=== PATIENT | male | born 1965 | race Caucasian/White ===

== ENCOUNTER 2017-03-25 10:10 | Emergency (ER) | payer BC ==
[~2017-03-25] VITALS: Ht 175.3 cm; Wt 108.8 kg
[2017-03-25 10:20] VITALS: TEMP 37.3; O2SAT 94; Ht 175.3 cm; Wt 108.8 kg
[2017-03-25] MEDS ORDERED: LISI-788 PO (10:31)
[2017-03-25] MEDS ORDERED: ASPI81TA28 PO (10:31)
[2017-03-25] MEDS ORDERED: METO50TA7 PO (10:31)
[2017-03-25] MEDS ORDERED: ATOR-22 PO (10:31)
[2017-03-25] MEDS ORDERED: SERT-234 PO (10:31)
--- NOTE | 2017-03-25 11:52 | EMERGENCY ROOM VISIT NOTE ---
History First contact with patient: 11:31 Chief Complaint: CHEST PAIN Stated Complaint: CHEST PAIN Nursing Triage Summary: pt reports intermittent chest pain for approx 4 months last week got really bad now is more constant and has sob with exertion. pain is described as squeezing radiates to back and left shoulder but not right now. seen pcp 2 weeks ago had cmp done sugar level at that time was 267. pt denies being a diabetic History of Present Illness The patient is a 51 year old male who presents to the Emergency Room with complaints of chest pain. The patient states that he had an episode of chest pain in 2009 for which he underwent extensive evaluation including stress test. He has also had an echocardiogram in the past. He states that 4 months ago he developed some intermittent squeezing chest pain but seemed to get better with Aleve. The patient states that last week he had an episode of severe pain in the chest he describes as squeezing in nature. He states that it radiated to his left arm. He states that he is having shortness of breath and pain with any deep inspiration. 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 He states that the pain has been very persistent. He rates his discomfort a 5/10. He denies any fevers or chills. He denies any earache, sore throat, cough or recent upper respiratory tract infection. He denies any abdominal pain, nausea or vomiting. He does admit to intermittent swelling of the lower extremities left greater than right. He has no history of diabetes but states his hemoglobin A1c was 10 and his sugar was 267 1 week ago. He states that his hemoglobin A1c was 5 last year. Review of Systems A 10 system review of systems was completed with positives and pertinent negatives listed in the HPI. Past Medical/Surgical History Medical Problems: (1) Hyperlipidemia (2) Hypertension Social History Smoking Status: Never Smoker Housing Status: lives with family Occupation Status: employed Current/Historical Medications Scheduled Aspirin (Aspirin Ec), 81 MG PO DAILY Atorvastatin (Lipitor), 20 MG PO QAM Colchicine (Colchicine), 0.6 MG PO BID Lisinopril/Hctz (Zestoretic 20MG/25MG), 1 TAB PO QAM Metoprolol Succ (Toprol Xl) (Toprol-Xl), 50 MG PO QAM Sertraline (Zoloft), 100 MG PO DAILY Physical Exam Vital Signs Date Time Temp Pulse Resp B/P (MAP) Pulse Ox O2 Delivery O2 Flow Rate FiO2 03/25/17 15:56 72 18 132/83 95 03/25/17 14:14 63 18 111/85 93 Room Air 03/25/17 13:07 66 03/25/17 12:08 74 20 110/77 96 Room Air 03/25/17 10:20 94 Room Air 03/25/17 10:20 37.3 91 18 136/85 94 Room Air 03/25/17 10:19 81 Physical Exam VITALS: Vitals are noted on the nurse's note and reviewed by myself. Vital signs stable. The patient is afebrile. GENERAL: This is a 51-year-old male, in no acute distress, nondiaphoretic, well- developed well-nourished. SKIN: The skin was without rashes, erythema, or bruising. There is edema noted to the left lower extremity, greater than right. There is no tenting of the skin. Capillary reflex less than 2 seconds. HEAD: Normocephalic atraumatic. EARS: The external ears are normal in appearance. EYES: Pupils equal round and reactive to light and accommodation. Conjunctivae without injection, sclerae without icterus. Extraocular movements intact. NOSE: Patent, turbinates without inflammation or discharge. MOUTH: Mucous membranes moist. Tonsils are not enlarged. Pharynx without erythema or exudate. Uvula midline. Airway patent. Tongue does not deviate. NECK: Supple without nuchal rigidity. No JVD. HEART: Regular rate and rhythm without murmurs gallops or rubs. LUNGS: Clear to auscultation bilaterally without wheezes, rales or rhonchi. No retractions or accessory muscle use. ABDOMEN: Positive bowel sounds x 4. Soft, nontender, without masses or organomegaly. Leslie sign negative. MUSCULOSKELETAL: No muscle atrophy, erythema,noted. Full range of motion without joint tenderness in all extremities. No tenderness to palpation. Normal gait. Strength 5/5 throughout. NEURO: Patient was alert and oriented to person place and time. No focal neurological deficits. Medical Decision & Procedures ER Provider Diagnostic Interpretation: SINGLE VIEW CHEST CLINICAL HISTORY: Atypical chest pain. FINDINGS: An AP, portable, upright chest radiograph is obtained. No prior studies are available for comparison at the time of dictation. The examination is degraded by portable technique and patient rotation. The heart is enlarged. The pulmonary vasculature is noncongested. The lungs and pleural spaces are clear. No pneumothorax is seen. The bony thorax is grossly intact. IMPRESSION: Cardiomegaly with no acute cardiopulmonary abnormality. [~ rep ct add3]] (CHEST FOR PE) ANGIO WITH CT DOSE: 716.19 mGy.cm HISTORY: Chest pain dyspnea TECHNIQUE: Multiaxial CT images of the chest were performed following the intravenous administration of contrast to evaluate the pulmonary arteries. Maximal intensity projection images were also obtained. A dose lowering technique was utilized adhering to the principles of ALARA. COMPARISON STUDY: None. FINDINGS: Minimal atherosclerotic change thoracic aorta. The pulmonary vasculature enhances appropriately. No significant filling defects. Evaluation along parenchyma shows mild dependent basilar atelectatic change. There is a small left effusion. There is a moderate pericardial effusion with a maximum thickness of 1 cm. IMPRESSION: 1. No evidence for pulmonary most. 2. Small left pleural effusion with bibasilar atelectasis. 3. Pericardial effusion with a maximum thickness of 1 cm Laboratory Results 03/25/17 10:25 Red Blood Count 4.13, Mean Corpuscular Volume 94.9, Mean Corpuscular Hemoglobin 33.4, Mean Corpuscular Hemoglobin Concent 35.2, Mean Platelet Volume 9.4, Neutrophils (%) (Auto) 70.9, Lymphocytes (%) (Auto) 15.6, Monocytes (%) (Auto) 8.0, Eosinophils (%) (Auto) 4.5, Basophils (%) (Auto) 0.4, Neutrophils # (Auto) 3.46, Lymphocytes # (Auto) 0.76, Monocytes # (Auto) 0.39, Eosinophils # (Auto) 0.22, Basophils # (Auto) 0.02 03/25/17 10:25 Test 03/25/17 00:00 03/25/17 10:25 03/25/17 12:07 Urine Color YELLOW Urine Appearance CLEAR (CLEAR) Urine pH 7.5 (4.5-7.5) Urine Specific [place] > 1.045 (1.000-1.030) Urine Protein NEG (NEG) Urine Glucose (UA) TRACE (NEG) Urine Ketones NEG (NEG) Urine Occult Blood NEG (NEG) Urine Nitrite NEG (NEG) Urine Bilirubin NEG (NEG) Urine Urobilinogen NEG (NEG) Urine Leukocyte Esterase NEG (NEG) White Blood Count 4.88 K/uL (4.8-10.8) Red Blood Count 4.13 M/uL (4.7-6.1) Hemoglobin 13.8 g/dL (14.0-18.0) Hematocrit 39.2 % (42-52) Mean Corpuscular Volume 94.9 fL (80-100) Mean Corpuscular Hemoglobin 33.4 pg (25-34) Mean Corpuscular Hemoglobin Concent 35.2 g/dl (32-36) Platelet Count 174 K/uL (130-400) Mean Platelet Volume 9.4 fL (7.4-10.4) Neutrophils (%) (Auto) 70.9 % Lymphocytes (%) (Auto) 15.6 % Monocytes (%) (Auto) 8.0 % Eosinophils (%) (Auto) 4.5 % Basophils (%) (Auto) 0.4 % Neutrophils # (Auto) 3.46 K/uL (1.4-6.5) Lymphocytes # (Auto) 0.76 K/uL (1.2-3.4) Monocytes # (Auto) 0.39 K/uL (0.11-0.59) Eosinophils # (Auto) 0.22 K/uL (0-0.5) Basophils # (Auto) 0.02 K/uL (0-0.2) RDW Standard Deviation 41.6 fL (36.4-46.3) RDW Coefficient of Variation 12.1 % (11.5-14.5) Immature Granulocyte % (Auto) 0.6 % Immature Granulocyte # (Auto) 0.03 K/uL (0.00-0.02) Prothrombin Time 10.5 SECONDS (9.0-12.0) Prothromb Time International Ratio 1.0 (0.9-1.1) Activated Partial Thromboplast Time 28.2 SECONDS (21.0-31.0) Partial Thromboplastin Ratio 1.1 Est Creatinine Clear Calc Drug Dose 133.0 ml/min Estimated GFR () 119.7 Estimated GFR (Non- 103.2 BUN/Creatinine Ratio 11.1 (10-20) Calcium Level 9.0 mg/dl (8.5-10.1) Magnesium Level 1.8 mg/dl (1.8-2.4) Total Bilirubin 0.4 mg/dl (0.2-1) Aspartate Amino Transf (AST/SGOT) 23 U/L (15-37) Alanine Aminotransferase (ALT/SGPT) 39 U/L (12-78) Alkaline Phosphatase 90 U/L (45-117) Total Creatine Kinase 40 U/L (39-308) Creatine Kinase MB < 0.5 ng/ml (0.5-3.6) Creatine Kinase MB Ratio (0-3.0) Troponin I < 0.015 ng/ml (0-0.045) Total Protein 7.0 gm/dl (6.4-8.2) Albumin 3.2 gm/dl (3.4-5.0) Globulin 3.8 gm/dl (2.5-4.0) Albumin/Globulin Ratio 0.8 (0.9-2) Lipase 98 U/L (73-393) Thyroid Stimulating Hormone (TSH) 1.310 uIu/ml (0.300-4.500) Bedside Hemoglobin 12.2 g/dl (14.0-18.0) Bedside Hematocrit 36 % (42-52) Bedside Sodium 138 mEq/L (135-144) Bedside Potassium 3.6 mEq/L (3.3-5.0) Bedside Chloride 96 mEq/L (101-112) Bedside Total CO2 29 mEq/l (24-31) Anion Gap 18.0 mmol/L (16-25) Bedside Blood Urea Nitrogen 7 mg/dl (7-18) Bedside Creatinine 0.6 mg/dl (0.6-1.3) Bedside Glucose (other) 207 mg/dl (70-99) Bedside Ionized Calcium (Gavin) 1.13 mmol/l (1.12-1.32) Medications Administered Medications (Trade) Dose Ordered Sig/Seferino Route Start Time Stop Time Status Last Admin Dose Admin Perflutren Lipid Microsphere (Definity) 2 ml ONE ONCE IV 03/25/17 14:42 03/25/17 14:43 DC 03/25/17 14:42 2 ML Procedure The patient was monitored on a clinical research monitor. They maintained a normal sinus rhythm without ectopy. ECG Indication: chest pain Rate (beats per minute): 80 Rhythm: normal sinus Findings: no acute ischemic change Comparison ECG Date: no prior available ED Course The patient was seen and examined. Previous visits were reviewed. The patient does not have a fever or leukocytosis. He is not anemic. He does not have any significant electrolyte abnormality. Glucose is elevated at 214. Cardiac enzymes are not elevated. Lipase was not elevated. TSH was within normal limits. INR was 1.0. Urinalysis was negative. Chest x-ray reveals cardiomegaly with no acute finding CTA of the chest reveals a pericardial effusion and small left pleural effusion The patient presents to the emergency department with pleuritic chest pain. The symptoms have been intermittent over the last several months. Aleve seems to make the symptoms go away for a short time. The patient's pain is better with laying flat and worse with deep inspiration. He does appear to have a pericardial effusion. The exact etiology is not clear but could be related to a pericarditis. The patient also has a new onset diabetes. I discussed the case with Dr. Ramey regarding the pericardial effusion. He suggests echocardiogram, ibuprofen 3 times a day and colchicine twice a day. The patient can follow-up in the office with cardiology. I also discussed the case with Dr. Ruiz. He recommends holding off on metformin given the IV contrast that was given today. The patient does have an appointment with the family doctor on Tuesday. He was encouraged to keep this appointment. The patient was advised of the above findings. He was encouraged to return with any worsening symptoms. Otherwise, he should follow-up with his family doctor and cardiology. The case was discussed with Dr. Grant who agrees with the assessment and treatment plan. Medical Decision DIFFERENTIAL DIAGNOSIS: Aortic dissection, myocarditis, pericarditis, cervical disc disease, costochondritis, herpes zoster, rib fracture, pleuritis, pneumonia , pulmonary embolus, tension pneumothorax, anxiety disorder, somatoform disorder , choledocholithiasis, status, esophagitis, esophageal spasm, esophageal reflux , esophageal rupture, pancreatitis, peptic ulcer disease, cardiac ischemia, ST elevation CA, acute coronary syndrome, arrhythmia, coronary artery vasospasm. vavular heart disease, coronary artery disease, among others. Impression Primary Impression: Pericarditis Additional Impressions: Pericardial effusion Hyperglycemia Departure Information Dispostion Home / Self-Care Condition GOOD Prescriptions Colchicine (Colchicine) 0.6 Mg Tab 0.6 MG PO BID for 30 Days, #60 TAB Prov: Edita Perez PA-C 03/25/17 Referrals Shade Ruiz MD (PCP) Patient Instructions ED Chest Pain Pericarditis, [facility], Treatment for Pericardial Effusion Additional Instructions Colchicine every 12 hours. You will likely need more than 2 weeks. Ibuprofen 600 mg every 8 hours for 2 weeks. You may consider GI protection with either a proton pump inhibitor such as Prilosec or an H2 jarad such as Zantac while taking the colchicine and ibuprofen. Follow up with your family doctor as scheduled Follow-up with cardiology for further evaluation and management Return with any worsening symptoms, fevers, worsening chest pain, worsening trouble breathing or generalized worsening symptoms Problem Qualifiers
[2017-03-25] MEDS ORDERED: OPTIRAY 320 IV PRN (12:00)
[2017-03-25 12:01] LABS: BASO % 0.4 %; BASO ABS # 0.02 K/uL (0-0.2); COMPLETE YES; EOS % 4.5 %; HEMATOCRIT 39.2 % (42-52); IG% 0.6 %; LYMPH % 15.6 %; LYMPH ABS # 0.76 K/uL (1.2-3.4); MEAN CELL VOLUME 94.9 fL (80-100); MEAN CORPUSCULAR HEMOGLOBIN 33.4 pg (25-34); MEAN CORPUSCULAR HGB CONC 35.2 g/dl (32-36); MEAN PLATELET VOLUME 9.4 fL (7.4-10.4); NEUT % 70.9 %; PLATELET COUNT 174 K/uL (130-400); RED BLOOD COUNT 4.13 M/uL (4.7-6.1); WHITE BLOOD COUNT 4.88 K/uL (4.8-10.8)
[2017-03-25 12:03] LABS: PARTIAL THROMBOPLASTIN RATIO 1.1; PROTHROMBIN TIME (PATIENT) 10.5 SECONDS (9.0-12.0)
[2017-03-25 12:09] LABS: ALT/SGPT 39 U/L (12-78); BLOOD UREA NITROGEN 9 mg/dl (7-18); BUN/CREATININE RATIO 11.1 (10-20); CARBON DIOXIDE 30 mmol/L (21-32); CHLORIDE 100 mmol/L (98-107); CREATININE 0.79 mg/dl (0.60-1.40); GLUCOSE 214 mg/dl (70-99); MAGNESIUM 1.8 mg/dl (1.8-2.4); POTASSIUM 3.6 mmol/L (3.5-5.1); SODIUM 138 mmol/L (136-145)
--- NOTE | 2017-03-25 12:12 | DIAGNOSTIC IMAGING REPORT ---
SINGLE VIEW CHEST CLINICAL HISTORY: Atypical chest pain. FINDINGS: An AP, portable, upright chest radiograph is obtained. No prior studies are available for comparison at the time of dictation. The examination is degraded by portable technique and patient rotation. The heart is enlarged. The pulmonary vasculature is noncongested. The lungs and pleural spaces are clear. No pneumothorax is seen. The bony thorax is grossly intact. IMPRESSION: Cardiomegaly with no acute cardiopulmonary abnormality. Electronically signed by: Ephraim Hernández M.D. 03/25/2017 12:11 PM Dictated Date/Time: 03/25/2017 12:10 PM
[2017-03-25 12:20] LABS: ALB/GLOB RATIO 0.8 (0.9-2); ALKALINE PHOSPHATASE 90 U/L (45-117); AST/SGOT 23 U/L (15-37)
[2017-03-25 12:24] LABS: ISTAT CREATININE 0.6 mg/dl (0.6-1.3); ISTAT HEMOGLOBIN 12.2 g/dl (14.0-18.0); ISTAT IONIZED CALCIUM 1.13 mmol/l (1.12-1.32)
--- NOTE | 2017-03-25 12:47 | DIAGNOSTIC IMAGING REPORT ---
(CHEST FOR PE) ANGIO WITH CT DOSE: 716.19 mGy.cm HISTORY: Chest pain dyspnea TECHNIQUE: Multiaxial CT images of the chest were performed following the intravenous administration of contrast to evaluate the pulmonary arteries. Maximal intensity projection images were also obtained. A dose lowering technique was utilized adhering to the principles of ALARA. COMPARISON STUDY: None. FINDINGS: Minimal atherosclerotic change thoracic aorta. The pulmonary vasculature enhances appropriately. No significant filling defects. Evaluation along parenchyma shows mild dependent basilar atelectatic change. There is a small left effusion. There is a moderate pericardial effusion with a maximum thickness of 1 cm. IMPRESSION: 1. No evidence for pulmonary most. 2. Small left pleural effusion with bibasilar atelectasis. 3. Pericardial effusion with a maximum thickness of 1 cm The above report was generated using voice recognition software. It may contain grammatical, syntax or spelling errors. Electronically signed by: Carson Ramachandran M.D. 03/25/2017 12:46 PM Dictated Date/Time: 03/25/2017 12:40 PM
[2017-03-25 13:08] LABS: MANUAL MICROSCOPIC REQUIRED? NO; REVIEW REQ? NO; URINE APPEARANCE CLEAR (CLEAR); URINE BILIRUBIN NEG (NEG); URINE COLOR YELLOW; URINE NITRITE NEG (NEG); URINE PH 7.5 (4.5-7.5); URINE SPECIFIC GRAVITY > 1.045 (1.000-1.030); UROBILINOGEN NEG (NEG); ZZUR CULT IF INDIC CLEAN CATCH NO
[2017-03-25] MEDS ORDERED: PERFLUTREN LIPID MICROSPHERE (DEFINITY) IV ONE (14:42)
--- NOTE | 2017-03-25 14:45 | ECHOCARDIOGRAM REPORT ---
*NOTICE TO RECEIVING REPUBLICAN AGENCY This information is strictly Confidential and protected under [place] law. [place] law prohibits you from making any further disclosure of this information unless further disclosure is expressly permitted by the written consent of the person to whom it pertains or is authorized by law. A general authorization for the release of medical or other information is not sufficient for this purpose. Hospital accepts no responsibility if the information is made available to any other person, INCLUDING THE PATIENT. Interpretation Summary * Name: SARWAT CONSTANTINO Study Date: 03/25/2017 01:58 PM BP: 110/77 mmHg * Patient Location: C.EDB HR: 67 * : 1965 (M/d/yyyy) Gender: Male Height: 69 in * Age: 51 yrs Ethnicity: CA Weight: 239 lb * Ordering Physician: Edita Perez * Referring Physician: Shade Ruiz * Performed By: Sakshi Sánchez RCS * * Reason For Study: Pericarditis * BSA: 2.2 m2 * -- Conclusions -- * Normal LV chamber size and wall thickness. * Normal LV systolic function, EF 60-65%. * No segmental left ventricular wall motion abnormalities are noted. * Grade I diastolic dysfunction. * No significant valvular pathology. * Small, circumferential pericardial effusion without hemodynamic compromise. Procedure Details * Left Ventricle The left ventricle is normal in size. There is normal left ventricular wall thickness. Ejection Fraction = 60-65%. Left ventricular systolic function is normal. No segmental left ventricular wall motion abnormalities are noted. The left ventricular wall motion is normal. * Right Ventricle The right ventricular cavity size is normal (basal dimension <4.2 cm in right ventricular apical 4-chamber view). The right ventricular systolic function is normal as assessed by tricuspid annular plane systolic excursion (TAPSE) (normal >1.5 cm). * Atria The left atrial size is normal. Right atrial size is normal. No ASD detected; PFO is not assessed. * Mitral Valve The mitral valve is normal in structure and function. * Tricuspid Valve The tricuspid valve is normal in structure and function. * Aortic Valve The aortic valve is not well visualized. No hemodynamically significant valvular aortic stenosis. There is no significant aortic regurgitation. * Pulmonic Valve The pulmonary valve is not well seen, but the Doppler examination is normal without significant regurgitation or stenosis. * Great Vessels The aortic root is normal size. * Pericardium/Pleural Small pericardial effusion. A circumferential pericardial effusion is noted. * Left Ventricular Diastolic Function Grade I diastolic dysfunction, (abnormal relaxation pattern). * * MMode 2D Measurements and Calculations * IVSd 0.85 cm * * LVIDd 5.2 cm * LVIDs 3.7 cm * LVPWd 1.0 cm * * IVS/LVPW 0.83 * FS 29.4 % * EDV(Teich) 128.4 ml * ESV(Teich) 56.6 ml * EF(Teich) 55.9 % * * EDV(cubed) 139.1 ml * ESV(cubed) 49.0 ml * EF(cubed) 64.8 % * * LV mass(C)d 175.8 grams * LV mass(C)dI 78.9 grams/m\S\2 * * SV(Teich) 71.8 ml * SI(Teich) 32.2 ml/m\S\2 * SV(cubed) 90.1 ml * SI(cubed) 40.4 ml/m\S\2 * * LVAd ap4 35.6 cm\S\2 * LVLd ap4 9.7 cm * EDV(MOD-sp4) 107.8 ml * EDV(sp4-el) 111.6 ml * LVAs ap4 19.3 cm\S\2 * LVLs ap4 7.9 cm * ESV(MOD-sp4) 40.5 ml * ESV(sp4-el) 40.0 ml * EF(MOD-sp4) 62.4 % * EF(sp4-el) 64.2 % * * LVAd ap2 30.6 cm\S\2 * LVLd ap2 8.2 cm * EDV(MOD-sp2) 95.7 ml * EDV(sp2-el) 97.2 ml * LVAs ap2 15.1 cm\S\2 * LVLs ap2 7.1 cm * ESV(MOD-sp2) 28.3 ml * ESV(sp2-el) 27.3 ml * EF(MOD-sp2) 70.5 % * EF(sp2-el) 71.9 % * * LVLd %diff -18.34 % * EDV(MOD-bp) 107.8 ml * LVLs %diff -11.76 % * ESV(MOD-bp) 35.6 ml * EF(MOD-bp) 67.0 % * * SV(MOD-sp4) 67.3 ml * SI(MOD-sp4) 30.2 ml/m\S\2 * * SV(MOD-sp2) 67.5 ml * SI(MOD-sp2) 30.3 ml/m\S\2 * * SV(MOD-bp) 72.2 ml * SI(MOD-bp) 32.4 ml/m\S\2 * * SV(sp4-el) 71.6 ml * SI(sp4-el) 32.1 ml/m\S\2 * * SV(sp2-el) 69.9 ml * SI(sp2-el) 31.4 ml/m\S\2 * * * * * Doppler Measurements and Calculations * MV E max west 94.8 cm/sec * MV A max west 92.8 cm/sec * * MV E/A 1.0 * * MV dec time 0.15 sec * * Ao V2 max 118.1 cm/sec * Ao max PG 5.6 mmHg * Ao max PG (full) 0.47 mmHg * * LV V1 max PG 5.1 mmHg * * LV V1 max 113.0 cm/sec * * * *
[2017-03-25] MEDS ORDERED: COLC0.6T54 PO ×2 (15:09→15:32)
[2017-03-25 15:56] VITALS: BP 132/83; PULSE 72; O2SAT 95
[2017-04-09] MEDS ORDERED: METO50TA7 PO (16:05)
[2017-04-09] MEDS ORDERED: APIX1TAB3 PO (16:05)
== END 2017-03-25 15:57 | disposition home or self-care (01) ==
LOC: C.EDB 10:12
DX: I31.9 Disease of pericardium, unspecified (principal); I31.3 Pericardial effusion (noninflammatory); R73.9 Hyperglycemia, unspecified; I10 Essential (primary) hypertension; E78.5 Hyperlipidemia, unspecified; Z79.82 Long term (current) use of aspirin; Z79.899 Other long term (current) drug therapy

== ENCOUNTER 2017-04-09 03:15 | Observation (INO) | payer BC ==
[2017-04-09] VITALS (8 sets, daily range): BP systolic 114–123; BP diastolic 77–82; PULSE 75–80; TEMP 36.6–36.8; O2SAT 95–98; Ht 175.3 cm; Wt 106.3 kg
[~2017-04-09] VITALS: Ht 175.3 cm; Wt 106.3 kg
[~2017-04-09 03:15] MED LIST: ASPI81TA28 PO; ATOR-22 PO; COLC0.6T54 PO; LISI-788 PO; METO50TA7 PO; SERT-234 PO
[2017-04-09] MEDS ORDERED: DILTIAZEM HCL 5 MG/ML 5 ML VIAL ONE (03:32)
[2017-04-09] MEDS ORDERED: DILTIAZEM HCL 5 MG/ML 5 ML VIAL IV STA (03:33)
[2017-04-09 03:44] LABS: BASO % 0.1 %; BASO ABS # 0.01 K/uL (0-0.2); COMPLETE YES; EOS % 3.2 %; HEMATOCRIT 37.4 % (42-52); IG% 0.3 %; LYMPH % 17.1 %; LYMPH ABS # 1.17 K/uL (1.2-3.4); MEAN CELL VOLUME 91.7 fL (80-100); MEAN CORPUSCULAR HEMOGLOBIN 32.6 pg (25-34); MEAN CORPUSCULAR HGB CONC 35.6 g/dl (32-36); MONO % 6.4 %; NEUT % 72.9 %; PLATELET COUNT 241 K/uL (130-400); RED BLOOD COUNT 4.08 M/uL (4.7-6.1); WHITE BLOOD COUNT 6.86 K/uL (4.8-10.8)
[2017-04-09] MEDS ORDERED: SODIUM CHLORIDE 0.9% 1000ML 1,000 ML IV ONE (03:45)
[2017-04-09 03:52] LABS: URINE APPEARANCE CLEAR (CLEAR); URINE BILIRUBIN NEG (NEG); URINE COLOR YELLOW; URINE NITRITE NEG (NEG); URINE PH 5.5 (4.5-7.5); URINE SPECIFIC GRAVITY 1.014 (1.000-1.030); UROBILINOGEN NEG (NEG); ZZUR CULT IF INDIC CLEAN CATCH NO
[2017-04-09 03:56] LABS: PARTIAL THROMBOPLASTIN RATIO 1.1; PROTHROMBIN TIME (PATIENT) 10.7 SECONDS (9.0-12.0)
[2017-04-09 04:03] LABS: MANUAL MICROSCOPIC REQUIRED? NO; REVIEW REQ? NO
[2017-04-09 04:04] LABS: BUN/CREATININE RATIO 24.4 (10-20); CALCIUM 9.2 mg/dl (8.5-10.1); CREATININE 0.96 mg/dl (0.60-1.40); MAGNESIUM 1.7 mg/dl (1.8-2.4); POTASSIUM 3.4 mmol/L (3.5-5.1)
[2017-04-09 04:15] LABS: ALB/GLOB RATIO 0.6 (0.9-2); THYROID STIMULATING HORMONE 2.98 uIu/ml (0.300-4.500)
[2017-04-09] MEDS ORDERED: GLC/500 PO (04:30)
[2017-04-09 04:38] LABS: LYME DISEASE AB IGG NEG (NEG); LYME DISEASE AB IGM NEG (NEG)
[2017-04-09] MEDS ORDERED: POTASSIUM CHLORIDE 10 MEQ TABCR PO STA (05:01)
[2017-04-09] MEDS ORDERED: MAGNESIUM SULFATE 1GM / D5W 1 GM in PREMIXED IN D5W 100 ML IV ONE (05:15)
[2017-04-09] MEDS ORDERED: MAGNESIUM SULFATE 1GM / D5W 1 GM BAG ONE (05:31)
[2017-04-09] MEDS ORDERED: POTASSIUM CHLORIDE 10 MEQ TABCR ONE (05:31)
[2017-04-09] MEDS ORDERED: METOPROLOL SUCC 50MG EXT REL TAB PO ONE (05:55)
[2017-04-09] MEDS ORDERED: GLUCOSE 40% GEL 15 GM TUBE PO PRN (06:00)
[2017-04-09] MEDS ORDERED: GLUCAGON FOR INJ 1 MG VIAL SQ PRN (06:00)
[2017-04-09] MEDS ORDERED: LORAZEPAM 2 MG/ML 1 ML VIAL IV PRN (06:00)
[2017-04-09] MEDS ORDERED: GLUCOSE 10 TABS/TUBE PO PRN (06:00)
[2017-04-09] MEDS ORDERED: MoRPHine SULFATE 4 MG/ML 1 ML CARP\\VIAL IV PRN (06:00)
[2017-04-09] MEDS ORDERED: ACETAMINOPHEN 325 MG TAB PO PRN (06:00)
[2017-04-09] MEDS ORDERED: ONDANSETRON INJ 2 MG/ML 2 ML VIAL IV PRN (06:00)
[2017-04-09] MEDS ORDERED: TRAMADOL HCL 50 MG TAB PO PRN (06:00)
[2017-04-09] MEDS ORDERED: NITROGLYCERIN 0.4 MG SL PER TAB CHARGE SL PRN (06:00)
[2017-04-09] MEDS ORDERED: DEXTROSE 50% 50 ML SYR IV PRN (06:00)
--- NOTE | 2017-04-09 06:19 | EMERGENCY ROOM VISIT NOTE ---
History First contact with patient: 03:22 Chief Complaint: CHEST PAIN Stated Complaint: CP Nursing Triage Summary: Pt reports he woke up at 2 am with palpitations. Pt then developed chest pain. Pt was here 2 weeks ago and dx with pericarditis. History of Present Illness The patient is a 51 year old male who presents to the Emergency Room with complaints of palpitations that began approximately one hour prior to arrival. The patient was in bed at the time of his symptoms, and then he slowly began to develop chest pain. The patient was recently seen here in this department about 2 weeks ago where he was found to have a pericardial effusion. 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 The patient has not had reports of recent fever or chills. No respiratory concerns. He has not had symptoms like this in the past. He did recently begin medication for glucose control, however he has been tolerating this well. The patient rates his overall discomfort a 7/10. Review of Systems More than 10 systems were reviewed and otherwise negative with the exception of history of present illness. Past Medical/Surgical History Medical Problems: (1) Hyperlipidemia (2) Hypertension (3) Paroxysmal atrial fibrillation Family History No pertinent family history Social History Smoking Status: Former Smoker Housing Status: lives with family Occupation Status: employed Current/Historical Medications Scheduled Aspirin (Aspirin Ec), 81 MG PO DAILY Atorvastatin (Lipitor), 20 MG PO QAM Colchicine (Colchicine), 0.6 MG PO BID Lisinopril/Hctz (Zestoretic 20MG/25MG), 1 TAB PO QAM Metformin Hcl (Glucophage), 500 MG PO BID Metoprolol Succ (Toprol Xl) (Toprol-Xl), 50 MG PO QAM Sertraline (Zoloft), 100 MG PO DAILY Physical Exam Vital Signs Date Time Temp Pulse Resp B/P (MAP) Pulse Ox O2 Delivery O2 Flow Rate FiO2 04/09/17 05:30 85 16 121/80 95 Room Air 04/09/17 04:12 87 16 109/62 94 04/09/17 03:50 93 20 109/69 93 04/09/17 03:49 95 Room Air 04/09/17 03:44 90 16 114/75 95 04/09/17 03:43 94 Room Air 04/09/17 03:30 94 04/09/17 03:21 36.5 157 24 116/90 94 Room Air Pain Rating (0-10): 0 Physical Exam VITALS: Vitals are noted on the nurse's note and reviewed by myself. Vital signs with tachycardia GENERAL: Well-developed, well-nourished, white male, who is in no acute distress and resting comfortably. Patient is cooperative with the examination. HEART: Irregularly irregular LUNGS: Clear to auscultation bilaterally without wheezes, rales or rhonchi. No retractions or accessory muscle use. ABDOMEN: Positive normal bowel sounds x 4. Soft, nontender, without masses or organomegaly. No guarding or rebound tenderness. MUSCULOSKELETAL: No muscle atrophy, erythema, or edema noted. Full range of motion without joint tenderness in all extremities. NEURO: Patient was alert and oriented to person place and time. CN II through XII grossly intact. Medical Decision & Procedures Laboratory Results 04/09/17 03:25 Red Blood Count 4.08, Mean Corpuscular Volume 91.7, Mean Corpuscular Hemoglobin 32.6, Mean Corpuscular Hemoglobin Concent 35.6, Mean Platelet Volume 9.0, Neutrophils (%) (Auto) 72.9, Lymphocytes (%) (Auto) 17.1, Monocytes (%) (Auto) 6.4, Eosinophils (%) (Auto) 3.2, Basophils (%) (Auto) 0.1, Neutrophils # (Auto) 5.00, Lymphocytes # (Auto) 1.17, Monocytes # (Auto) 0.44, Eosinophils # (Auto) 0.22, Basophils # (Auto) 0.01 04/09/17 03:25 Test 04/09/17 03:25 04/09/17 03:45 04/09/17 03:48 White Blood Count 6.86 K/uL (4.8-10.8) Red Blood Count 4.08 M/uL (4.7-6.1) Hemoglobin 13.3 g/dL (14.0-18.0) Hematocrit 37.4 % (42-52) Mean Corpuscular Volume 91.7 fL (80-100) Mean Corpuscular Hemoglobin 32.6 pg (25-34) Mean Corpuscular Hemoglobin Concent 35.6 g/dl (32-36) Platelet Count 241 K/uL (130-400) Mean Platelet Volume 9.0 fL (7.4-10.4) Neutrophils (%) (Auto) 72.9 % Lymphocytes (%) (Auto) 17.1 % Monocytes (%) (Auto) 6.4 % Eosinophils (%) (Auto) 3.2 % Basophils (%) (Auto) 0.1 % Neutrophils # (Auto) 5.00 K/uL (1.4-6.5) Lymphocytes # (Auto) 1.17 K/uL (1.2-3.4) Monocytes # (Auto) 0.44 K/uL (0.11-0.59) Eosinophils # (Auto) 0.22 K/uL (0-0.5) Basophils # (Auto) 0.01 K/uL (0-0.2) RDW Standard Deviation 40.6 fL (36.4-46.3) RDW Coefficient of Variation 12.0 % (11.5-14.5) Immature Granulocyte % (Auto) 0.3 % Immature Granulocyte # (Auto) 0.02 K/uL (0.00-0.02) Prothrombin Time 10.7 SECONDS (9.0-12.0) Prothromb Time International Ratio 1.0 (0.9-1.1) Activated Partial Thromboplast Time 27.8 SECONDS (21.0-31.0) Partial Thromboplastin Ratio 1.1 Anion Gap 10.0 mmol/L (3-11) Est Creatinine Clear Calc Drug Dose 107.9 ml/min Estimated GFR () 104.9 Estimated GFR (Non- 90.5 BUN/Creatinine Ratio 24.4 (10-20) Calcium Level 9.2 mg/dl (8.5-10.1) Magnesium Level 1.7 mg/dl (1.8-2.4) Total Bilirubin 0.3 mg/dl (0.2-1) Aspartate Amino Transf (AST/SGOT) 24 U/L (15-37) Alanine Aminotransferase (ALT/SGPT) 29 U/L (12-78) Alkaline Phosphatase 98 U/L (45-117) Total Protein 7.5 gm/dl (6.4-8.2) Albumin 2.8 gm/dl (3.4-5.0) Globulin 4.7 gm/dl (2.5-4.0) Albumin/Globulin Ratio 0.6 (0.9-2) Thyroid Stimulating Hormone (TSH) 2.980 uIu/ml (0.300-4.500) Lyme Disease IgG Antibody NEG (NEG) Lyme Disease IgM Antibody NEG (NEG) Urine Color YELLOW Urine Appearance CLEAR (CLEAR) Urine pH 5.5 (4.5-7.5) Urine Specific [place] 1.014 (1.000-1.030) Urine Protein NEG (NEG) Urine Glucose (UA) NEG (NEG) Urine Ketones TRACE (NEG) Urine Occult Blood NEG (NEG) Urine Nitrite NEG (NEG) Urine Bilirubin NEG (NEG) Urine Urobilinogen NEG (NEG) Urine Leukocyte Esterase NEG (NEG) Bedside Troponin I < 0.030 ng/ml (0-0.045) Medications Administered Medications (Trade) Dose Ordered Sig/Seferino Route Start Time Stop Time Status Last Admin Dose Admin Diltiazem HCl (Cardizem Inj) 10 mg NOW STAT IV 04/09/17 03:33 04/09/17 03:36 DC 04/09/17 03:40 10 MG Sodium Chloride 1,000 ml @ 999 mls/hr Q1H1M ONCE IV 04/09/17 03:45 04/09/17 04:45 DC 04/09/17 03:42 999 MLS/HR Magnesium Sulfate (Magnesium Sulfate) 1 gm STK-MED ONCE .ROUTE 04/09/17 05:31 04/09/17 05:32 DC 04/09/17 05:34 1 GM Potassium Chloride (Klor-Con M10) 60 meq STK-MED ONCE .ROUTE 04/09/17 05:31 04/09/17 05:32 DC 04/09/17 05:34 60 MEQ ED Course Physical exam and history were performed. Nursing notes, EMR, and Medication List were personally reviewed. Patient appears to have reports of palpitations for roughly the past one hour. On examination the patient has an irregularly irregular heart, and EKG does confirm atrial fibrillation with rapid ventricular response of roughly 160 bpm. IV access was established and labs were obtained. The patient was hydrated with normal saline and given a dose of 10 mg IV Cardizem. Repeat EKG a few minutes later did show conversion to normal sinus rhythm at roughly 80 beats for minute without significant ST elevation. The patient's blood work is as above. He does not have a significantly elevated white blood cell count or gross anemia, bandemia, or significant electrolyte imbalance. Transaminases are nondiagnostic. Troponin 1 is negative. TSH is euthyroid state. Lyme is negative. Chest x-ray does not show significant acute findings. I discussed the case with my attending physician, Dr. Ryan, and then with the on-call [facility] hospitalist. The patient appears to have new onset atrial fibrillation with RVR. The patient has not had this in the past, and considering that 2 weeks ago he did have a pericardial effusion I feel that he needs further inpatient evaluation. Please see the hospitalist dictation for further patient course, plan, and disposition. The chart was completed utilizing [employer] Speech Voice Recognition Software. Grammatical errors, random word insertions, pronoun errors, and incomplete sentences are an occasional consequence of this system due to software limitations, ambient noise, and hardware issues. Any formal questions or concerns about the content, text, or information contained within the body of this dictation should be directly addressed to the provider for clarification. . Medical Decision Differential diagnosis: Etiologies such as premature contractions, electrolyte abnormality, cardiac dysrhythmia, thyroid dysfunction, pulmonary embolism, infection, gastrointestinal, as well as others were entertained. Medication Reconcilliation Current Medication List: was personally reviewed by me Blood Pressure Screening Blood pressure disposition: Elevated BP felt to be situational Impression Primary Impression: Atrial fibrillation with RVR Additional Impression: Paroxysmal atrial fibrillation Departure Information Referrals Shade Ruiz MD (PCP) Patient Instructions [facility] Problem Qualifiers
[2017-04-09] MEDS ORDERED: LORAZEPAM INJ 0.5 MG in SYRINGE 0.75 ML IV PRN (06:30)
[2017-04-09] MEDS: INSULIN ASPART 100 UNITS/ML 3 ML PEN SC SCH ×2 (07:00→12:20)
[2017-04-09] MEDS ORDERED: INSULIN GLARGINE SOLOSTAR 100 UNITS/ML 3 ML PEN SC SCH (09:00)
[2017-04-09] MEDS ORDERED: ASPIRIN 81 MG ECTAB PO SCH (09:00)
[2017-04-09] MEDS ORDERED: LISINOPRIL 20 MG TAB PO SCH (09:00)
[2017-04-09] MEDS ORDERED: SERTRALINE HCL 100 MG TAB PO SCH (09:00)
[2017-04-09] MEDS ORDERED: COLCHICINE 0.6 MG TAB PO SCH (09:00)
[2017-04-09] MEDS ORDERED: ENOXAPARIN 40 MG/0.4 ML SYR SQ SCH (09:00)
[2017-04-09] MEDS ORDERED: ATORVASTATIN 20 MG TAB PO SCH (09:00)
--- NOTE | 2017-04-09 09:09 | HISTORY & PHYSICAL EXAMINATION ---
DATE OF ADMISSION: 04/09/2017 PRIMARY CARE PHYSICIAN: Dr. Ruiz. CHIEF COMPLAINT: Chest pain, abnormal heartbeat. HISTORY OF PRESENT ILLNESS: History obtained from patient and records. Medical history significant for hypertension, YOLY on CPAP, Idiopathic pericarditis/precardinal effusion status post NSAID Rx ongoing colchicine Rx, DM2 on oral meds, anxiety disorder, past tobacco abuse. About 2 weeks ago, patient was seen at the Emergency Room for chest pain symptoms, pleuritic, worse lying down. A PE study did not show filling defects, Moderate pericardial effusion, maximum thickness 1 cm noted. A 2D echo was done showed EF 60-65%, normal LV chamber wall thickness, LV dysfunction, small right pericardial effusion without hemodynamic compromise, no significant valvular pathology. ER provider in touch with [facility] glass furnace tender customer contact specialist who recommended ibuprofen every 8 hours for 2 weeks, colchicine every 12 hours for 1 month. Improvement of chest discomfort symptoms. Patient had a followup with his personal glass furnace tender who was in agreement with [facility] glass furnace tender's recommendations. Follow-up echo scheduled. This morning the patient woke up with substernal discomfort, achy, different from pericarditis pain in the past. No shortness of breath. He sensed "arrhythmia". More pronounced chest discomfort en route to the Emergency Room. At the Emergency Room, the patient noted to be in rapid AFib, heart rate 150s. Patient given Diltiazem, NSS. The patient had subsequent conversion to normal sinus rhythm. No previous episodes. Compliant with meds. No unusual personal stress or incoordinate coffee/ETOH intake. Patient is currently comfortable. MEDICAL HISTORY: As above. Recent diagnosis of DM2. Hemoglobin A1c was 10 last month, started on metformin , SURGERIES: He has had back surgery, tonsillectomy and appendectomy. HOME MEDICATIONS: Include colchicine, aspirin, Lipitor, lisinopril/HCTZ, Glucophage, Toprol, Zoloft. ALLERGIES: No known drug allergies. FAMILY HISTORY: Family history of heart disease. 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 REVIEW OF SYSTEMS: As per HPI, all other ROS negative. PHYSICAL EXAMINATION: VITAL SIGNS: Blood pressure was noted to be 116/90, pulse rate 150 later 94, respiratory rate 20, temperature 37, sats 94 on room air. GENERAL: Slightly anxious, no respiratory distress. SKIN: Normal color. HEAD, EYES, EARS, NOSE, AND THROAT: [place] palpebral conjunctivae. Dry mucosa. NECK: Short neck. LUNGS: Decreased breath sounds. HEART: Regular rate and rhythm. ABDOMEN: Soft. EXTREMITIES: No edema. no tenderness NEUROLOGIC: No gross focality. LABORATORY DATA: Hemoglobin was noted to be 13.3, white cells 6.8, platelets 241. Sodium 136, K 3.4 chloride 102, CO2 26, creatinine 0.9, glucose 113, mag was 1.7. trop 0 EKG on arrival at the ER as per my interpretation rate 160, Afib, diffuse T-wave flattening/inversion. Chest x-ray as per my interpretation cardiomegaly, atelectasis. ASSESSMENT AND PLAN: 1. New onset Afib may be related to electrolyte abnormalities. Conversion to NSR post intervention at the ER 2. Hypertension, stable. 3. Recent idiopathic pericarditis, improved completed NSAID course, ongoing colchicine rx 4. YOLY on CPAP. 5. DM2 on oral meds recent diagnosis Initial hemoglobin A1c of 10 from last month blood sugar currently controlled. 6. Past tobacco abuse. PLAN: Observation PCU Continue home beta jarad for rate control IVF, replace electrolytes TTE, Cardio consult RE new onset atrial fibrillation, follow-up study for recent paracardial effusion status post treatment Will possibly need oral anticoagulation given CHADS score of 2. Further management as per Cardiology. ISS BG goal 140-180 DVT prophylaxis with Lovenox subQ FULL CODE. MTDD
[2017-04-09] MEDS ORDERED: METOPROLOL SUCC 25MG EXT REL TAB PO ONE (10:02)
--- NOTE | 2017-04-09 10:18 | DIAGNOSTIC IMAGING REPORT ---
CHEST ONE VIEW PORTABLE CLINICAL HISTORY: Afib with rvr COMPARISON STUDY: Chest radiograph and chest CT March 25, 2017. FINDINGS: There is no pneumothorax. No pleural effusion is identified. Mild enlargement of the cardiac silhouette is noted. Mild bibasilar opacities are present. There is no evidence of pulmonary edema. IMPRESSION: 1. No evidence of pulmonary edema. 2. Mild bibasilar opacities which may reflect atelectasis or consolidation. Electronically signed by: Sudhir Jaeger M.D. 04/09/2017 10:16 AM Dictated Date/Time: 04/09/2017 10:15 AM
--- NOTE | 2017-04-09 10:40 | CARDIOLOGY CONSULTATION ---
DATE OF CONSULTATION: 04/09/2017 DATE OF CONSULTATION: 04/09/2017 REFERRING PHYSICIAN: Dr. Timmy Mcgraw. REASON FOR CONSULTATION: Atrial fibrillation. CHIEF COMPLAINT ON ADMISSION: Chest discomfort, palpitations. 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 ECG on arrival demonstrated atrial fibrillation with rapid ventricular response, heart rate of 162 beats per minute, nonspecific ST-T wave abnormality. He was treated with intravenous diltiazem and subsequently converted to sinus rhythm. He has noted to have mild hypokalemia as well as low serum magnesium level, prior history of obstructive sleep apnea, recently diagnosed diabetes, hypertension, as well as pericarditis in early March. Currently, the patient is resting comfortably. Denies chest pain or unusual shortness of breath. 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 In general, denies exertional chest pain or unusual shortness of breath. His functional capacity is stable. No orthopnea or PND. Chronic left pretibial edema with stasis changes present for more than 20 years. No history of prior cerebrovascular accident, congestive heart failure, coronary artery disease, rheumatic fever as a child, or peripheral vascular disease. Recent resting 2D transthoracic echo demonstrated circumferential pericardial effusion. He has completed his course of nonsteroidal anti-inflammatories. He continues to take colchicine. He has had no recurrent pleuritic chest discomfort in more than 1 week. REVIEW OF SYSTEMS: The pertinent positive noted above. A comprehensive 10-system review is otherwise negative. PAST MEDICAL HISTORY: 1. Diabetes type 2 -- recently diagnosed. 2. Pericarditis. 3. Hypertension. 4. Obstructive sleep apnea. 5. Dyslipidemia. FAMILY HISTORY: Negative for premature CAD or sudden cardiac . SOCIAL HISTORY: Former tobacco use. 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 OUTPATIENT MEDICATIONS: 1. Aspirin 81 mg daily. 2. Lipitor 20 mg daily. 3. Colchicine 0.6 mg twice daily. 4. Zestoretic daily. 5. Metformin twice daily. 6. Toprol-XL 50 mg daily. 7. Zoloft 100 mg daily. ALLERGIES: No known drug allergies. LABORATORY DATA: Sodium 138, potassium 3.4, chloride 102, CO2 is 26, BUN is 23, creatinine is 0.96. White blood cell count 6.86, hemoglobin is 13.3, platelet count is 241. INR is 1.0. PHYSICAL EXAMINATION: VITAL SIGNS: Temperature is 36.6 degrees centigrade, pulse 79 beats per minute and regular, respiratory rate is 20 breaths per minute, blood pressure 123/82, and SA02 is 96% on room air. GENERAL: NAD, awake, alert and oriented x3. HEAD, EYES, EARS, NOSE, AND THROAT: His mucous membranes are moist. No scleral icterus. Conjunctivae are pink. NECK: Supple. There is no JVD, no HJR, no carotid bruit. HEART: Regular with a normal S1, S2, no murmur, rub, or gallop. LUNGS: Clear without rales, rhonchi or wheeze. ABDOMEN: Soft, nontender. No rebound or guarding. Normal bowel sounds. EXTREMITIES: Warm and dry. There is no clubbing or cyanosis. There is mild left ankle and pretibial edema with stasis changes in the pretibial region. Distal pulses are palpable. NEUROLOGIC EXAMINATION: Demonstrates no focal deficit. FINAL IMPRESSIONS: 1. Paroxysmal atrial fibrillation with rapid ventricular response CHADS2 score equals 2. 2. Recent pericarditis -- resolves without recurrent pleuritic chest discomfort. 3. Diabetes type 2 -- recently diagnosed. 4. Hypertension -- controlled. PLAN AND RECOMMENDATIONS: I have ordered a repeat resting 2D transthoracic echo as well as CRP. With elevated CHADS2 score and no clear reversible cause at this time with his atrial fibrillation we discussed the risk versus benefit of anticoagulation for cardioembolic prophylaxis. Risks versus benefit of DOAC versus Coumadin reviewed. The patient prefers DOAC at this time. We will await results of resting echo prior to initiating therapy. I will add additional 25 mg of Toprol-XL daily. Total dose will be 75 mg daily. 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 He is followed by a rn hemo dialysis in the [facility]. I will continue to follow him during hospitalization.
--- NOTE | 2017-04-09 12:57 | Progress Note ---
Medicine Progress Note Date & Time of Visit: Apr 09, 2017 at 12:37. Subjective Pt was seen and examined Lying in bed with no distress Pt said that he feels fine Denies any chest pain, palpitation, dizziness and SOB Objective Last 8 Hrs Date Time Temp Pulse Resp B/P (MAP) Pulse Ox O2 Delivery O2 Flow Rate FiO2 04/09/17 12:00 95 Room Air 04/09/17 11:01 36.7 79 20 114/77 (89) 96 Room Air 04/09/17 08:00 96 Room Air 04/09/17 07:12 36.6 79 20 123/82 (96) 96 Room Air 04/09/17 06:34 36.8 75 16 122/82 98 Room Air 04/09/17 05:30 85 16 121/80 95 Room Air Physical Exam: General- No acute distress Head- atraumatic Eyes- PERRL, EOMI ENT- oropharynx clear Neck- supple, no JVD Lungs- clear to auscultation Heart- regular rhythm; no murmur Abdomen- normal bowel sounds, soft, nontender Extremities- no calf tenderness Neuro- alert, oriented x 3; PERRL, EOMI; no facial palsy Skin- warm & dry Laboratory Results: Last 24 Hours Test 04/09/17 03:25 04/09/17 03:45 04/09/17 03:48 04/09/17 06:38 White Blood Count 6.86 K/uL Red Blood Count 4.08 M/uL Hemoglobin 13.3 g/dL Hematocrit 37.4 % Mean Corpuscular Volume 91.7 fL Mean Corpuscular Hemoglobin 32.6 pg Mean Corpuscular Hemoglobin Concent 35.6 g/dl Platelet Count 241 K/uL Mean Platelet Volume 9.0 fL Neutrophils (%) (Auto) 72.9 % Lymphocytes (%) (Auto) 17.1 % Monocytes (%) (Auto) 6.4 % Eosinophils (%) (Auto) 3.2 % Basophils (%) (Auto) 0.1 % Neutrophils # (Auto) 5.00 K/uL Lymphocytes # (Auto) 1.17 K/uL Monocytes # (Auto) 0.44 K/uL Eosinophils # (Auto) 0.22 K/uL Basophils # (Auto) 0.01 K/uL RDW Standard Deviation 40.6 fL RDW Coefficient of Variation 12.0 % Immature Granulocyte % (Auto) 0.3 % Immature Granulocyte # (Auto) 0.02 K/uL Prothrombin Time 10.7 SECONDS Prothromb Time International Ratio 1.0 Activated Partial Thromboplast Time 27.8 SECONDS Partial Thromboplastin Ratio 1.1 Sodium Level 138 mmol/L Potassium Level 3.4 mmol/L Chloride Level 102 mmol/L Carbon Dioxide Level 26 mmol/L Anion Gap 10.0 mmol/L Blood Urea Nitrogen 23 mg/dl Creatinine 0.96 mg/dl Est Creatinine Clear Calc Drug Dose 107.9 ml/min Estimated GFR () 104.9 Estimated GFR (Non- 90.5 BUN/Creatinine Ratio 24.4 Random Glucose 113 mg/dl Calcium Level 9.2 mg/dl Magnesium Level 1.7 mg/dl Total Bilirubin 0.3 mg/dl Aspartate Amino Transf (AST/SGOT) 24 U/L Alanine Aminotransferase (ALT/SGPT) 29 U/L Alkaline Phosphatase 98 U/L Total Protein 7.5 gm/dl Albumin 2.8 gm/dl Globulin 4.7 gm/dl Albumin/Globulin Ratio 0.6 Thyroid Stimulating Hormone (TSH) 2.980 uIu/ml Lyme Disease IgG Antibody NEG Lyme Disease IgM Antibody NEG Urine Color YELLOW Urine Appearance CLEAR Urine pH 5.5 Urine Specific [place] 1.014 Urine Protein NEG Urine Glucose (UA) NEG Urine Ketones TRACE Urine Occult Blood NEG Urine Nitrite NEG Urine Bilirubin NEG Urine Urobilinogen NEG Urine Leukocyte Esterase NEG Bedside Troponin I < 0.030 ng/ml Bedside Glucose 126 mg/dl Test 04/09/17 10:11 04/09/17 11:03 Troponin I < 0.015 ng/ml C-Reactive Protein 12.40 mg/dl Hepatitis C Antibody Screen NEG Bedside Glucose 110 mg/dl Assessment & Plan Paroxysmal A.FIB Present with palpitation and chest discomfort with uncontrolled HR Received IV cardizem in the ER Converted back to NSR Rate is controlled CHADS 2 score (HTN, DM) Cardiology on board Recommended to start on anticoagulant Pt prefers to start on the NOAC Will start on Eliquis Metoprolol increase to 75mg ECHO pending Discussed with cardiology Follow up with Cardiology in [place] as an outpatient Hypertension Controlled Continue lisinopril and metoprolol Stable Recent idiopathic pericarditis Completed NSAID course On colchicine Stable YOLY on CPAP. Stable DM2 Recent HBA1C 10 Metformin on hold On insulin coverage DVT PX on Lovenox subq CODE STATUS FULL CODE Consultants: Cardiology Current Inpatient Medications: Current Inpatient Medications Medications (Trade) Dose Ordered Sig/Seferino Route Start Time Stop Time Status Last Admin Dose Admin Acetaminophen (Tylenol Tab) 650 mg Q4H PRN PO 04/09/17 06:00 05/09/17 05:59 Nitroglycerin (Nitrostat Tab) 0.4 mg UD PRN SL 04/09/17 06:00 05/09/17 05:59 Insulin Aspart (novoLOG ASPART) SLIDING SCALE If C... ACHS SC 04/09/17 07:00 05/09/17 06:59 04/09/17 12:20 2 UNITS Glucose (Glucose 40% Gel) 15-30 GRAMS 15 GRAMS... UD PRN PO 04/09/17 06:00 05/09/17 05:59 Glucose (Glucose Chew Tab) 4-8 Tablets 4 Tabl... UD PRN PO 04/09/17 06:00 05/09/17 05:59 Dextrose (Dextrose 50% 50ML Syringe) 25-50ML OF 50% DW IV FOR... UD PRN IV 04/09/17 06:00 05/09/17 05:59 Glucagon (Glucagon Inj) 1 mg UD PRN SQ 04/09/17 06:00 05/09/17 05:59 Ondansetron HCl (Zofran Inj) 4 mg Q6H PRN IV 04/09/17 06:00 05/09/17 05:59 Tramadol HCl (Ultram Tab) 25 mg Q6H PRN PO 04/09/17 06:00 05/09/17 05:59 Lorazepam (Ativan Inj) 0.5 mg Q4H PRN IV 04/09/17 06:00 05/09/17 05:59 04/09/17 07:48 0.5 MG Morphine Sulfate (MoRPHine SULFATE INJ) 4 mg Q3H PRN IV 04/09/17 06:00 04/23/17 05:59 Aspirin (Ecotrin Tab) 81 mg DAILY PO 04/09/17 09:00 05/09/17 08:59 04/09/17 07:42 81 MG Atorvastatin Calcium (Lipitor Tab) 20 mg QAM PO 04/09/17 09:00 05/09/17 08:59 Colchicine (Colchicine Tab) 0.6 mg BID PO 04/09/17 09:00 05/09/17 08:59 04/09/17 07:40 0.6 MG Metoprolol Succinate (Toprol Xl Tab) 50 mg QAM PO 04/10/17 09:00 05/10/17 08:59 Sertraline HCl (Zoloft Tab) 100 mg DAILY PO 04/09/17 09:00 05/09/17 08:59 04/09/17 07:41 100 MG Lisinopril (Zestril Tab) 20 mg QAM PO 04/09/17 09:00 05/09/17 08:59 04/09/17 07:41 20 MG Insulin Glargine (Lantus Solostar Pen) 5 units DAILY SC 04/09/17 09:00 05/09/17 08:59 04/09/17 07:46 5 UNITS Lorazepam 0.5 mg/ Syringe 1 ml @ 1 mls/min Q4H PRN IV 04/09/17 06:30 05/09/17 06:29 Enoxaparin Sodium (Lovenox Inj) 40 mg DAILY SQ 04/09/17 09:00 05/09/17 08:59 04/09/17 09:09 40 MG Metoprolol Succinate (Toprol Xl Tab) 25 mg QAM PO 04/10/17 09:00 05/10/17 08:59
[2017-04-09] MEDS ORDERED: APIXABAN 2.5 MG TAB PO ONE (13:08)
--- NOTE | 2017-04-09 14:32 | ECHOCARDIOGRAM REPORT ---
*NOTICE TO RECEIVING [employer] This information is strictly Confidential and protected under [place] law. [place] law prohibits you from making any further disclosure of this information unless further disclosure is expressly permitted by the written consent of the person to whom it pertains or is authorized by law. A general authorization for the release of medical or other information is not sufficient for this purpose. Hospital accepts no responsibility if the information is made available to any other person, INCLUDING THE PATIENT. Interpretation Summary * Name: SARWAT CONSTANTINO Study Date: 04/09/2017 11:18 AM BP: 121/80 mmHg * Patient Location: [facility] HR: 85 * : 1965 (M/d/yyyy) Gender: Male Height: 69 in * Age: 51 yrs Ethnicity: [place] Weight: 233 lb * Ordering Physician: Timmy Mcgraw * Referring Physician: Self, Referred * Performed By: Jazmine Shipman RDCS * * Reason For Study: A-fib * BSA: 2.2 m2 * Limited views were obtained. * Compared to prior study, changes are noted. * -- Conclusions -- * Previously reported circumferential pericardial effusion has resolved. * No significant pericardial effusion on the current study with a possible trace amount of loculated fluid in the posterior region. * Ejection Fraction = 60-65%. * The left atrium is mildly dilated. Procedure Details * A two-dimensional transthoracic echocardiogram was performed. Left Ventricle * Ejection Fraction = 60-65%. Atria * The left atrium is mildly dilated. Pericardium/Pleural * Previously reported circumferential pericardial effusion has resolved. No significant pericardial effusion on the current study with a possible trace amount of loculated fluid in the posterior region. Great Vessels * IVC not visualized. MMode 2D Measurements and Calculations IVSd 1.1 cm LVIDd 4.9 cm LVIDs 3.1 cm LVPWd 1.0 cm IVS/LVPW 1.0 FS 36.7 % EDV(Teich) 111.0 ml ESV(Teich) 37.4 ml EF(Teich) 66.4 % EDV(cubed) 115.3 ml ESV(cubed) 29.3 ml EF(cubed) 74.6 % LV mass(C)d 181.2 grams LV mass(C)dI 82.2 grams/m\S\2 SV(Teich) 73.7 ml SI(Teich) 33.4 ml/m\S\2 SV(cubed) 86.0 ml SI(cubed) 39.0 ml/m\S\2 LA dimension 3.4 cm LVAd ap4 21.6 cm\S\2 LVLd ap4 7.9 cm EDV(MOD-sp4) 52.1 ml EDV(sp4-el) 50.4 ml LVAs ap4 12.6 cm\S\2 LVLs ap4 6.3 cm ESV(MOD-sp4) 22.2 ml ESV(sp4-el) 21.6 ml EF(MOD-sp4) 57.3 % EF(sp4-el) 57.0 % LVAd ap2 25.9 cm\S\2 LVLd ap2 8.0 cm EDV(MOD-sp2) 68.8 ml EDV(sp2-el) 71.5 ml LVAs ap2 15.5 cm\S\2 LVLs ap2 7.3 cm ESV(MOD-sp2) 29.8 ml ESV(sp2-el) 28.1 ml EF(MOD-sp2) 56.6 % EF(sp2-el) 60.6 % LVLd %diff 1.3 % EDV(MOD-bp) 59.6 ml LVLs %diff 14.0 % ESV(MOD-bp) 26.7 ml EF(MOD-bp) 55.1 % SV(MOD-sp4) 29.9 ml SI(MOD-sp4) 13.5 ml/m\S\2 SV(MOD-sp2) 38.9 ml SI(MOD-sp2) 17.7 ml/m\S\2 SV(MOD-bp) 32.8 ml SI(MOD-bp) 14.9 ml/m\S\2 SV(sp4-el) 28.7 ml SI(sp4-el) 13.0 ml/m\S\2 SV(sp2-el) 43.3 ml SI(sp2-el) 19.7 ml/m\S\2
[2017-04-09] MEDS ORDERED: METO50TA7 PO (16:05)
[2017-04-09] MEDS ORDERED: APIX1TAB3 PO (16:05)
--- NOTE | 2017-04-09 16:11 | Discharge Instructions ---
Discharge Instructions Date of Service Apr 09, 2017. Admission Reason for Admission: Paroxysmal Atrial Fibrillation Discharge Discharge Diagnosis / Problem: Paroxysmal Atrial Fibrillation, Hypertension, DM type 2 Discharge Goals Goal(s): Decrease discomfort, Improve function, Improve disease control Activity Recommendations Activity Limitations: resume your previous activity (as tolerated) . Instructions / Follow-Up Instructions / Follow-Up Follow up with your primary care provider Dr. Ruiz on 04/13 @ 11:05 am Follow up with your cardiology at [place] Monitor Blood pressure Medication Instructions: ELIQUJORGE Eliqujorge is an anticoagulant. Anticoagulants will thin your blood to help prevent new clots. * You should take her medication exactly as directed. * Never skip a dose. * Never take a double dose. If you miss a dose, take it as soon as you remember. Call your Primary Care doctor if you experience any of the following: * Swelling or Pain in your leg * Sudden, continuous pain deep in a muscle * Pain that worsens when you are active or when you stand still for a long time * Chest Pain * Sudden Shortness of Breath * Rapid or pounding heart beat * Fainting * Dizziness * Cough with blood or bloody sputum * Sweating more than normal * Bruises * Heavy or uncontrolled bleeding * Blood in your urine, stool or vomit * Black or tarry stools Follow Up: It is important for you to keep your follow up appointments with your medical provider. Current Hospital Diet Patient's current hospital diet: Diabetes Type 2 Diet, AHA Diet (Heart Healthy) Discharge Diet Recommended Diet: AHA Diet (Heart Healthy), Diabetes Type 2 Diet Pending Studies Studies pending at discharge: no Medical Emergencies . Who to Call and When: Medical Emergencies: If at any time you feel your situation is an emergency, please call 911 immediately. . Non-Emergent Contact Non-Emergency issues call your: Primary Care Provider Call Non-Emergent contact if: you have any medication questions . . "Provider Documentation" section prepared by Avtar Honeycutt. . VTE Core Measure Inpt VTE Proph given/why not?: Enoxaparin (Lovenox)SQ
[2017-04-09] MEDS ORDERED: APIXABAN 2.5 MG TAB PO SCH (21:00)
[2017-04-10] MEDS ORDERED: METOPROLOL SUCC 50MG EXT REL TAB PO SCH (09:00)
[2017-04-10] MEDS ORDERED: METOPROLOL SUCC 25MG EXT REL TAB PO SCH (09:00)
--- NOTE | 2017-04-15 13:59 | Discharge Summary ---
Discharge Summary Date of Service Apr 15, 2017. Discharge Summary Admission Date: Apr 09, 2017 at 05:26 Discharge Date: Apr 09, 2017 Discharge Disposition: Home Principal Diagnosis: Paroxysmal Atrial Fibrillation Secondary Diagnoses/Problems: Hypertension DM type 2 Recent idiopathic pericarditis YOLY Procedures: Interpretation Summary * Name: SARWAT CONSTANTINO Study Date: 04/09/2017 11:18 AM BP: 121/80 mmHg * Patient Location: [facility] HR: 85 * : 1965 (M/d/yyyy) Gender: Male Height: 69 in * Age: 51 yrs Ethnicity: [place] Weight: 233 lb * Ordering Physician: Timmy Mcgraw * Referring Physician: Self, Referred * Performed By: Jazmine Shipman RDCS * * Reason For Study: A-fib * BSA: 2.2 m2 * Limited views were obtained. * Compared to prior study, changes are noted. * -- Conclusions -- * Previously reported circumferential pericardial effusion has resolved. * No significant pericardial effusion on the current study with a possible trace amount of loculated fluid in the posterior region. * Ejection Fraction = 60-65%. * The left atrium is mildly dilated. Procedure Details * A two-dimensional transthoracic echocardiogram was performed. Left Ventricle * Ejection Fraction = 60-65%. Atria * The left atrium is mildly dilated. Pericardium/Pleural * Previously reported circumferential pericardial effusion has resolved. No significant pericardial effusion on the current study with a possible trace amount of loculated fluid in the posterior region. Great Vessels * IVC not visualized. Consultations: Cardiology Medication Reconciliation New Medications: Apixaban (Eliquis) 5 Mg Tab 5 MG PO BID for 30 Days, #60 TAB Changed Medications: Metoprolol Succ (Toprol Xl) (Toprol-Xl) 50 Mg Tabcr 75 MG PO QAM for 30 Days, #45 TAB (Changed from: 50 MG; 30) Continued Medications: Aspirin (Aspirin Ec) 81 Mg Tab 81 MG PO DAILY Atorvastatin (Lipitor) 20 Mg Tab 20 MG PO QAM, TAB Colchicine (Colchicine) 0.6 Mg Tab 0.6 MG PO BID for 30 Days, #60 TAB Lisinopril/Hctz (Zestoretic 20MG/25MG) Tab 1 TAB PO QAM, TAB Metformin Hcl (Glucophage) 500 Mg Tab 500 MG PO BID, TAB Sertraline (Zoloft) 100 Mg Tab 100 MG PO DAILY, TAB Admission Information HPI (per Admitting provider): CHIEF COMPLAINT: Chest pain, abnormal heartbeat. HISTORY OF PRESENT ILLNESS: History obtained from patient and records. Medical history significant for hypertension, YOLY on CPAP, Idiopathic pericarditis/precardinal effusion status post NSAID Rx ongoing colchicine Rx, DM2 on oral meds, anxiety disorder, past tobacco abuse. About 2 weeks ago, patient was seen at the Emergency Room for chest pain symptoms, pleuritic, worse lying down. A PE study did not show filling defects, Moderate pericardial effusion, maximum thickness 1 cm noted. A 2D echo was done showed EF 60-65%, normal LV chamber wall thickness, LV dysfunction, small right pericardial effusion without hemodynamic compromise, no significant valvular pathology. ER provider in touch with [facility] tool repairer bench erp implementation consultant who recommended ibuprofen every 8 hours for 2 weeks, colchicine every 12 hours for 1 month. Improvement of chest discomfort symptoms. Patient had a followup with his personal tool repairer bench who was in agreement with [facility] tool repairer bench's recommendations. Follow-up echo scheduled. This morning the patient woke up with substernal discomfort, achy, different from pericarditis pain in the past. No shortness of breath. He sensed "arrhythmia". More pronounced chest discomfort en route to the Emergency Room. At the Emergency Room, the patient noted to be in rapid AFib, heart rate 150s. Patient given Diltiazem, NSS. The patient had subsequent conversion to normal sinus rhythm. No previous episodes. Compliant with meds. No unusual personal stress or incoordinate coffee/ETOH intake. Patient is currently comfortable. Physical Exam (per Admitting): VITAL SIGNS: Blood pressure was noted to be 116/90, pulse rate 150 later 94, respiratory rate 20, temperature 37, sats 94 on room air. GENERAL: Slightly anxious, no respiratory distress. SKIN: Normal color. HEAD, EYES, EARS, NOSE, AND THROAT: [place] palpebral conjunctivae. Dry mucosa. NECK: Short neck. LUNGS: Decreased breath sounds. HEART: Regular rate and rhythm. ABDOMEN: Soft. EXTREMITIES: No edema. no tenderness NEUROLOGIC: No gross focality. Hospital Course Paroxysmal A.FIB Present with palpitation and chest discomfort with uncontrolled HR Received IV cardizem in the ER Converted back to NSR Rate is controlled CHADS 2 score (HTN, DM) Cardiology on board Recommended to start on anticoagulant Pt prefers to start on the NOAC Will start on Eliquis Metoprolol increase to 75mg ECHO pending Discussed with cardiology Follow up with Cardiology in [place] as an outpatient Hypertension Controlled Continue lisinopril and metoprolol Stable Recent idiopathic pericarditis Completed NSAID course On colchicine Stable YOLY on CPAP. Stable DM2 Recent HBA1C 10 Metformin on hold On insulin coverage DVT PX on Lovenox subq CODE STATUS FULL CODE Total time spent on discharge = 35 minutes This includes examination of the patient, discharge planning, medication reconciliation, and communication with other providers. Discharge Instructions Discharge Instructions Date of Service Apr 09, 2017. Admission Reason for Admission: Paroxysmal Atrial Fibrillation Discharge Discharge Diagnosis / Problem: Paroxysmal Atrial Fibrillation, Hypertension, DM type 2 Discharge Goals Goal(s): Decrease discomfort, Improve function, Improve disease control Activity Recommendations Activity Limitations: resume your previous activity (as tolerated) . Instructions / Follow-Up Instructions / Follow-Up Follow up with your primary care provider Dr. Ruiz on 04/13 @ 11:05 am Follow up with your cardiology at [place] Monitor Blood pressure Medication Instructions: ELIQUIS Eliquis is an anticoagulant. Anticoagulants will thin your blood to help prevent new clots. * You should take her medication exactly as directed. * Never skip a dose. * Never take a double dose. If you miss a dose, take it as soon as you remember. Call your Primary Care doctor if you experience any of the following: * Swelling or Pain in your leg * Sudden, continuous pain deep in a muscle * Pain that worsens when you are active or when you stand still for a long time * Chest Pain * Sudden Shortness of Breath * Rapid or pounding heart beat * Fainting * Dizziness * Cough with blood or bloody sputum * Sweating more than normal * Bruises * Heavy or uncontrolled bleeding * Blood in your urine, stool or vomit * Black or tarry stools Follow Up: It is important for you to keep your follow up appointments with your medical provider. Current Hospital Diet Patient's current hospital diet: Diabetes Type 2 Diet, AHA Diet (Heart Healthy) Discharge Diet Recommended Diet: AHA Diet (Heart Healthy), Diabetes Type 2 Diet Pending Studies Studies pending at discharge: no Medical Emergencies . Who to Call and When: Medical Emergencies: If at any time you feel your situation is an emergency, please call 911 immediately. . Non-Emergent Contact Non-Emergency issues call your: Primary Care Provider Call Non-Emergent contact if: you have any medication questions . . "Provider Documentation" section prepared by Avtar Honeycutt. . VTE Core Measure Inpt VTE Proph given/why not?: Enoxaparin (Lovenox)SQ Additional Copies To Shade Ruiz MD
== END 2017-04-09 16:58 | disposition home or self-care (01) ==
LOC: C.EDB 03:16 → C.2T 05:26 → ENRESERV 05:36
PROVIDERS: ADMIT Internal Medicine; ATTEND Internal Medicine
DX: I48.0 Paroxysmal atrial fibrillation (principal); I51.89 Other ill-defined heart diseases; I10 Essential (primary) hypertension; E78.5 Hyperlipidemia, unspecified; E11.9 Type 2 diabetes mellitus without complications; G47.33 Obstructive sleep apnea (adult) (pediatric); F41.9 Anxiety disorder, unspecified; Z87.891 Personal history of nicotine dependence; Z79.4 Long term (current) use of insulin; Z79.82 Long term (current) use of aspirin; Z79.899 Other long term (current) drug therapy